=== PATIENT | female | born 1960 | race Caucasian/White ===

== ENCOUNTER 2023-08-15 17:35 | Emergency (ER) | payer MEDICARE, SELFPAY ==
[2023-08-15 17:45] VITALS: BP 126/87
[2023-08-15 18:02] LABS: % Basophils 0.4 % (0-2); % Eosinophils 2.7 % (0-6); % Immature Granulocytes 0.2 % (0-0.5); % Lymphocytes 18.5 % (20.5-51.1); % Monocytes 4.8 % (1.7-9.3); % Neutrophils 73.4 % (42.2-75.2); Absolute Eosinophils 0.2 10^3/uL (0-0.7); Absolute Lymphocytes 1.7 10^3/uL (1.2-3.4); Absolute Monocytes 0.4 10^3/uL (0.1-0.6); Absolute Neutrophils 6.6 10^3/uL (1.4-6.5); Hematocrit 39.8 % (37.0-47.0); Hemoglobin 14.3 g/dL (12.0-16.0); Mean Corp Hgb Conc. 35.9 g/dL (33.0-37.0); Mean Corpuscular Hgb 32.6 pg (27.0-31.0); Mean Corpuscular Volume 90.9 fL (81.0-99.0); Mean Platelet Volume 9.5 fL (7.4-10.4); Nucleated Red Blood Cells % 0 %; Platelet Count 223 10^3/uL (130-400); Red Blood Cell Count 4.38 10^6/uL (4.20-5.40); Red Cell Dist. Width 12.3 % (11.5-14.5)
[2023-08-15 18:25] LABS: ALT (SGPT) 24 U/L (0-35); AST (SGOT) 25 U/L (14-36); Albumin 4.5 g/dl (3.5-5.0); Alkaline Phosphatase 115 U/L (38-126); Blood Urea Nitrogen 22 mg/dl (7-17); Calcium 10.9 mg/dl (8.4-10.2); Carbon Dioxide 23 mmol/L (22-30); Chloride 102 mmol/L (98-107); Glucose 201 mg/dl (70-99); Potassium 4.3 mmol/L (3.5-5.1); Sodium 136 mmol/L (135-145); Total Bilirubin 0.6 mg/dl (0.2-1.3); Total Protein 7.2 g/dl (6.3-8.2); eGFR > 60.00
--- NOTE | 2023-08-15 22:31 | ED.GENMED ---
History of Present Illness
<Abiodun Arias DO - Last Filed: 08/16/23 03:12>
General
Chief Complaint: Anxiety
Source: patient
Time Seen by Provider: 08/15/23 22:29
Nursing documentation reviewed up to this point in time: agreed with
Travel History
Have you had any contact with someone who has COVID-19?: No
Do you have any symptoms of coronavirus? Fever > 100 degrees, chills, cough, shortness of breath, sore throat, loss of taste or smell, muscle aches, or headache?: No
History of Present Illness
History of Present Illness:
Mason 63-year-old female presents with medication reaction. Patient states that she was at and is having a medication reaction due to her psych meds. Patient
<JEOVANNY Gordon - Last Filed: 08/16/23 06:51>
History of Present Illness
History of Present Illness:
Mason 63-year-old female presents via ambulance due to medication reaction. Patient states that she was at and is having a medication reaction due to her psych meds. Patient was admitted for manic psychosis episode and was
started on Risperidone 2mg and discharged with 1mg dose. However, she admits the last time she took Risperidone, she had extrapyramidal symptoms including muscle stiffness, restlessness, and increased anxiety. She reports similar symptoms today.
She states she feels like 'something is going to happen' and must pace back and forth in the room. She states she will not take her daily dose of Risperidone 1mg today. She denies any heart palpitations, shortness of breath, chest pain, headaches,
nausea, vomiting, diarrhea. She denies hallucinations or delusions. She denies any suicidal or homicidal ideations. She has an appointment with her psychiatrist on 08/21/23.
Past History
<Abiodun Arias DO - Last Filed: 08/16/23 03:12>
Past History
ED Past Medical History: Psychiatric (Bipolar)
ED Past Surgical History: Other (Adenoma removed from parathyroid gland 2014)
Patient has exhibited threatening behavior?: No
Social History
Tobacco: Non-smoker
Alcohol: None
Drug: None
Personal:
Living: long-term
Review of Systems
<Abiodun Arias DO - Last Filed: 08/16/23 03:12>
Review of Systems
Allergies reviewed?: Yes
Other source history: family
All Other Systems: ROS reviewed and negative except as documented in HPI and ROS
Constitutional: Denies fever
Psychiatric: Reports anxiety; Denies suicidal
<JEOVANNY Gordon - Last Filed: 08/16/23 06:51>
Review of Systems
EENT: Reports no symptoms
Respiratory: Reports no symptoms
Cardiac: Reports no symptoms
ABD/GI: Reports no symptoms
: Reports no symptoms
Musculoskeletal: Reports muscle stiffness
Skin: Reports no symptoms
Neurological: Reports no symptoms
Endocrine: Reports no symptoms
Hematologic/Lymphatic: Reports no symptoms
Psychiatric: Reports anxiety (Feels like 'something is going to happen')
Phy Exam
<JEOVANNY Gordon - Last Filed: 08/16/23 06:51>
General Physical Exam
General Presentation: well appearing and no apparent distress
General Skin: warm and dry
General Habitus: normal
General Mental: anxious
General Hydration: appears well hydrated
ENT Exam
ENT Exam: EOMI, pharynx normal, neck supple and normocephalic
Eye Exam
Eye Exam: PERRL, cornea clear and conjunctiva normal
Cardiovascular Exam
Cardiovascular Exam: regular rate/rhythm, no edema, no murmur and normal peripheral pulses
Pulmonary Exam
Pulmonary Exam: lungs clear, no respiratory distress, no rales, no crackles, no rhonchi, no stridor, no wheezing and no cough
Gastrointestinal Exam
Gastrointestinal Exam: normal bowel sounds, non tender, soft, no organomegaly, no pulsatile mass and non distended
Neurological Exam
Neurological Exam: alert, oriented x3, no motor deficits and speech normal
Musculoskeletal Exam
Musculoskeletal Exam: full ROM and no edema
Skin Exam
Skin Exam: normal color, warm/dry, no rash and no petechia
Psychiatric Exam
Psychiatric Exam: normal mood/affect
Course
<Abiodun Arias, DO - Last Filed: 08/16/23 03:12>
Orders/Labs/Results
Orders:
Orders
08/15/23 17:54
Complete Blood Count/With Diff Urgent
Comprehensive Metabolic Panel Urgent
08/15/23 22:31
Electrocardiogram (*1) Urgent
Reason for Study: QTc Monitoring
EKG- Treatment ONCE
08/16/23 00:00
0.9% Sodium Chloride 1000 ml [Nss] 1,000 ml IV BOLUS
08/16/23 01:53
Crisis Consult Urgent
Reason for Consult: Anxiety
08/16/23 03:04
Benztropine [Cogentin] 1 mg PO NOW STA
08/16/23 Breakfast
Regular
At Your Request: Full Participation
Does patient need a safe tray?: Yes
08/16/23 06:17
Consult Notification Routine
Specialty to Notify: Psychiatry
PSYCHIATRY CONSULT Urgent
Consulting Provider: Shahriar Rodríguez
Was physician already notified: No
Reason for consult: med adjustment
08/16/23 06:19
Drug Screen, Urine [Urine Drug Abuse Screen] Urgent
Abnormal Lab Results
08/15/23 08/15/23
17:54 22:31
MCH 32.6 H pg
(27.0-31.0)
Absolute Neuts (auto) 6.6 H 10^3/uL
(1.4-6.5)
Lymphocytes % 18.5 L %
(20.5-51.1)
BUN 22 H mg/dl
(7-17)
Glucose 201 H mg/dl
(70-99)
Calcium 10.9 H mg/dl
(8.4-10.2)
POC Glucose 121 H mg/dl
(70-99)
08/15/23 17:54
08/15/23 17:54
Vital Signs
Initial and Last Documented VS:
Initial Vital Signs
Temp Pulse Resp BP Pulse Ox
98.1 F 102 18 126/87 98
08/15/23 17:45 08/15/23 17:45 08/15/23 17:45 08/15/23 17:45 08/15/23 17:45
Last Documented Vital Signs
Temp Pulse Resp BP Pulse Ox
97.7 F 70 16 137/90 98
08/16/23 06:21 08/16/23 06:21 08/16/23 06:21 08/16/23 06:21 08/16/23 06:21
<JEOVANNY Gordon - Last Filed: 08/16/23 06:51>
Orders/Labs/Results
Orders:
Orders
08/15/23 17:54
Complete Blood Count/With Diff Urgent
Comprehensive Metabolic Panel Urgent
08/15/23 22:31
Electrocardiogram (*1) Urgent
Reason for Study: QTc Monitoring
EKG- Treatment ONCE
08/16/23 00:00
0.9% Sodium Chloride 1000 ml [Nss] 1,000 ml IV BOLUS
08/16/23 01:53
Crisis Consult Urgent
Reason for Consult: Anxiety
08/16/23 03:04
Benztropine [Cogentin] 1 mg PO NOW STA
08/16/23 Breakfast
Regular
At Your Request: Full Participation
Does patient need a safe tray?: Yes
08/16/23 06:17
Consult Notification Routine
Specialty to Notify: Psychiatry
PSYCHIATRY CONSULT Urgent
Consulting Provider: Shahriar Rodríguez
Was physician already notified: No
Reason for consult: med adjustment
08/16/23 06:19
Drug Screen, Urine [Urine Drug Abuse Screen] Urgent
Abnormal Lab Results
08/15/23 08/15/23
17:54 22:31
MCH 32.6 H pg
(27.0-31.0)
Absolute Neuts (auto) 6.6 H 10^3/uL
(1.4-6.5)
Lymphocytes % 18.5 L %
(20.5-51.1)
BUN 22 H mg/dl
(7-17)
Glucose 201 H mg/dl
(70-99)
Calcium 10.9 H mg/dl
(8.4-10.2)
POC Glucose 121 H mg/dl
(70-99)
08/15/23 17:54
08/15/23 17:54
Vital Signs
Initial and Last Documented VS:
Initial Vital Signs
Temp Pulse Resp BP Pulse Ox
98.1 F 102 18 126/87 98
08/15/23 17:45 08/15/23 17:45 08/15/23 17:45 08/15/23 17:45 08/15/23 17:45
Last Documented Vital Signs
Temp Pulse Resp BP Pulse Ox
97.7 F 70 16 137/90 98
08/16/23 06:21 08/16/23 06:21 08/16/23 06:21 08/16/23 06:21 08/16/23 06:21
<JEOVANNY Gordon - Last Filed: 08/16/23 06:51>
MDM/Problems Addressed
Differential Diagnosis Includes:
Medication reaction, anxiety, manic psychosis episode, depression, CVA
Medication reaction and anxiety considered due to prior history of similar reaction to Risperidone. Manic psychosis episode considered, however she denies any hallucinations or delusions. CVA considered but no stroke like symptoms and normal
neurological exam. I suspect this is a reaction to Risperidone and will plan to discontinue and start patients typical bipolar medication.
<JEOVANNY Gordon - Last Filed: 08/16/23 06:51>
*Critical Care Note
Total Time (30-74mins, 75-104mins- exclusive of procedures): Not Applicable
ED Attending Note
<Abiodun Arias DO - Last Filed: 08/16/23 03:12>
ED Attending Note
Patient seen and examined by attending physician: Yes
I performed the substantive portion of visit, reviewed & personally made and approve the management plan that is documented in note by myself or CORI.: Yes
ED Attending Note:
63-year-old female presents via ambulance due to medication reaction. Was just discharged from after not taking some of her bipolar meds. She was switched to Remeron and now feels anxious. She had muscle stiffness
restlessness and increased anxiety. Patient refuses to take her risperidone. She is scheduled for an appointment with her psychiatrist on August 20. Patient was seen in conjunction with the PA student. I have reviewed and agree with the history and
treatment plan presented. On my independent physical exam, patient is awake, alert, and oriented x3. She is anxious pacing about the room.
-
Portions of this chart may have been created with voice recognition software.� Occasional wrong word or��sound alike� substitutions may have occurred due to the inherent limitations of voice recognition software.
Discharge Plan
Departure
Patient Disposition: Psych Facility
Date of Disposition: 08/16/23
Time of Disposition: 03:10
Patient Status:: 201
Condition: Fair
Discharge Problem:
Psychotic break, Bipolar 1 disorder, manic, mild
Prescriptions:
No Action
multivitamin Tablet
1 tab PO DAILY
atorvastatin 40 mg Tablet
40 mg PO HS
cholecalciferol (vitamin D3) 25 mcg (1,000 unit) Tablet
1,000 unit PO DAILY
levothyroxine 50 mcg tablet
50 mcg PO DAILY AT 0700
metformin 500 mg Tablet
500 mg PO BID@0800,1700 Qty: 1 0RF
carvedilol 6.25 mg tablet
6.25 mg PO BID
risperidone 4 mg tablet
4 mg PO HS
minoxidil 2.5 mg tablet
1.25 mg PO QPM
mirtazapine 30 mg tablet
30 mg PO HS
Xarelto 20 mg tablet
20 mg PO DAILY
Referrals:
Jose Alfredo Moreno DO [Family Provider] -
Interventions
Interventions:
*Risk Screen - Suicide Last Done: 08/15/23 17:45
*General Assessment Last Done: 08/15/23 17:45
*Neglect/Abuse Screening Last Done: 08/15/23 17:45
ED- Fall Risk Assessment Last Done: 08/16/23 00:00
*ED COVID-19 Vaccine History Last Done: 08/15/23 17:45
ED-Psychological Assessment Last Done: 08/15/23 23:30
Discharge Date and Time
Print Language: SPANISH
[2023-08-15 22:32] LABS: Glucose - Point of Care 121 mg/dl (70-99)
[2023-08-15 23:29] VITALS: BMI 28.0
[2023-08-15 23:30] VITALS: BP 142/85
[2023-08-16] MEDS: NSS 1000 IV (01:19)
[2023-08-16] MEDS: COGENTIN 1 MG PO (03:11)
[2023-08-16 06:21] VITALS: BP 137/90
[2023-08-16 10:11] LABS: Amphetamines Negative (Negative); Barbiturates Negative (Negative)
[2023-08-16 10:12] LABS: Benzodiazepines Negative (Negative); Buprenorphine Negative (Negative); Cocaine Negative (Negative); Marijuana Negative (Negative); Methadone Negative (Negative); Methamphetamines Negative (Negative); Opiates Negative (Negative); Phencyclidine Negative (Negative); Tricyclic Antidepressants Negative (Negative)
[2023-08-16 12:10] VITALS: BP 121/84
== END 2023-08-16 12:13 ==
LOC: EMR 17:35
PROVIDERS: Emergency Medicine; EMERGENCY PHYSICIAN Student in an Organized Health Care Education/Training Program; FAMILY PHYSICIAN Family Medicine
DX: F31.89 Other bipolar disorder (principal); F23 Brief psychotic disorder
CPT/HCPCS: 99285; 96360; 80053; 80306; 82962; 85025; 93005

== ENCOUNTER → 2024-09-09 15:58 | Outpatient (REF) | payer OTHER, SELFPAY | LOC: RAD 15:58 | PROVIDERS: ATTENDING PHYSICIAN Internal Medicine Hematology & Oncology | DX: I26.99 Other pulmonary embolism without acute cor pulmonale (principal) | CPT/HCPCS: 71275; Q9967 ==

== ENCOUNTER 2024-10-07 20:04 | Emergency (ER) | payer OTHER, SELFPAY ==
[2024-10-07 20:07] VITALS: BP 171/104
--- NOTE | 2024-10-07 23:22 | ED.GENMED ---
History of Present Illness
General
Chief Complaint: Crisis Evaluation
Source: patient and previous hospital records
Exam Limitations: clinical condition
Time Seen by Provider: 10/07/24 22:44
Nursing documentation reviewed up to this point in time: agreed with except (Upon review of medication bottles that are accompanying the patient. It appears Seroquel dose was decreased from 400 mg to 300 mg beginning September 10)
History of Present Illness
History of Present Illness:
This is a 64-year-old woman who resides at home with her son. She has history of hypertension, hyperlipidemia, dri-ytpheld-frpugjphu diabetes as well as longstanding history of anxiety, bipolar disorder with previous episodes of courtney requiring
inpatient psychiatric treatment. She follows regularly with a psychiatrist and apparently Seroquel dose was recently decreased from 400 to 300 mg beginning September 10.
She has been brought to the ED by her son with concern for inability to take care of herself, disorganized thoughts.
There has been no report of fall nor injury.
No prior history of suicide attempts nor history of alcohol nor drug use. No history of overmedication nor medication noncompliance.
Son is not present during evaluation and call to his cell phone goes to [employer].
Past History
Past History
ED Past Medical History: HTN, Hypercholesterolemia, NIDDM, Hypothyroidism, Psychiatric (Bipolar) and Other (History of PE 2022 treated with Xarelto for 1 year. Has since been discontinued and follows with hematology, Dr. Martinez. At this point
no indication to resume and no recurrent episodes.)
ED Past Surgical History: Other (Adenoma removed from parathyroid gland 2013)
Patient has exhibited threatening behavior?: No
Social History
Tobacco: Non-smoker
Alcohol: None
Drug: None
Personal:
Living: with family (Resides with her son)
Employment: Not employed
Family History
Family History: Other (Noncontributory)
Phy Exam
Physical Exam
Physical Exam:
GENERAL: 64-year-old woman appears her stated age, awake and alert, appears mildly disheveled in nature but oriented x 3. Mildly anxious, mildly restless, intermittent tangential and disorganized thought processes but cooperative and answering
simple questions appropriately.
EYE: pupils equal and reactive. anicteric
NECK: Supple, nontender, no meningismus, no significant adenopathy.
ENT: oral mucosa is moist. No rhinorrhea.
CARDIAC: Regular rate and rhythm. no murmur.
LUNGS: Clear breath sounds bilaterally, no acute respiratory distress, no wheezes/rales/rhonchi
ABDOMEN: Soft, nondistended, without focal tenderness, . normoactive BS.
NEUROLOGICAL: Alert and oriented x3, no focal neuro deficits. Gait is zambrano and steady. Intermittently restless, intermittent tongue smacking consistent with tardive dyskinesia.
SKIN: Warm and dry, normal color, skin intact. No rash.
MUSCULOSKELETAL: No C/C/E. peripheral pulses are full and equal b/l. No palpable tenderness.
PSYCH: Mildly anxious, mildly restless, intermittent tongue smacking. Tangential and disorganized thought processes. Adamantly denies suicidal thoughts or plan. She is agreeable to inpatient psychiatric treatment.
Course
Orders/Labs/Results
Orders:
Orders
10/07/24 20:19
Crisis Consult Urgent
Reason for Consult: Pt is manic
10/07/24 23:18
Urine Drug Abuse Screen Urgent
Date Specimen was Collected: 10/08/24
Time Specimen was Collected: 00:45
10/07/24 23:20
Vital Signs- Treatment ONCE
Frequency: Once
Benztropine [Cogentin] 1 mg PO NOW STA
10/07/24 23:32
Alcohol Urgent
Complete Blood Count/With Diff Urgent
Comprehensive Metabolic Panel Urgent
Abnormal Lab Results
10/07/24
23:32
MCH 32.2 H pg
(27.0-31.0)
Chloride 110 H mmol/L
(98-107)
Glucose 122 H mg/dl
(70-99)
AST 50 H U/L
(14-36)
ALT 49 H U/L
(0-35)
10/07/24 23:32
10/07/24 23:32
Vital Signs
Initial and Last Documented VS:
Initial Vital Signs
Temp Pulse Resp BP Pulse Ox
98.7 F 114 28 171/104 96
10/07/24 20:07 10/07/24 20:07 10/07/24 20:07 10/07/24 20:07 10/07/24 20:07
Last Documented Vital Signs
Temp Pulse Resp BP Pulse Ox
97.5 F 95 17 154/85 99
10/07/24 23:42 10/07/24 23:42 10/07/24 23:42 10/07/24 23:42 10/07/24 23:42
MDM/Problems Addressed
Differential Diagnosis Includes:
Concern for exacerbation of bipolar disorder, courtney, less likely electrolyte abnormality, exacerbation of diabetes.
Patient is moderately agitated, restless, lipsmacking�tardive dyskinesia. Unclear if this is a chronic condition versus newer onset. Patient appears to have similar presentation during ED visit August 2023. And was given a dose of Cogentin. Will
trial a dose of Cogentin now.
She has rambling thought processes but for the most part speech is understandable. Occasional brief nonsensical speech is noted.
She denies injury or falls. Denies pain and is currently hungry, requesting something to eat.
She was brought to the ED by her son who has since left the ED. I did attempt to call the cell phone, no answer.
Patient is agreeable to inpatient psychiatric treatment and has been evaluated by [facility]. Bed search in process.
Will check routine labs as well as EtOH and UDS. No prior history of alcohol no drug use.
Recent TSH 10/02/2024 within normal limits at 2.05. No indication to repeat.
Chronic conditions affecting care: DM, HTN and Psychiatric illness
Acute Exacerbation and/or Progression of Chronic Illness: Psychiatric illness
*Pulse Oximetry
SaO2: 96
Oxygen Mode of Delivery: Room air
Patient hypoxic: no
*Critical Care Note
Total Time (30-74mins, 75-104mins- exclusive of procedures): Not Applicable
Update Note
Update Note:
Patient has been accepted to [facility].
She remains cooperative.
Has consumed a box lunch.
Labs are unremarkable. Mildly elevated LFTs, similar to previous.
UDS and EtOH are negative as expected.
ED Attending Note
-
Portions of this chart may have been created with voice recognition software.� Occasional wrong word or��sound alike� substitutions may have occurred due to the inherent limitations of voice recognition software.
Discharge Plan
Departure
Patient Disposition: Psych Facility
Date of Disposition: 10/07/24
Time of Disposition: 23:26
Discharge Problem:
Bipolar disorder with psychotic features
Prescriptions:
No Action
multivitamin Tablet
1 tab PO DAILY
atorvastatin 40 mg Tablet
40 mg PO HS
cholecalciferol (vitamin D3) 25 mcg (1,000 unit) Tablet
1,000 unit PO DAILY
levothyroxine 50 mcg tablet
50 mcg PO DAILY AT 0700
metformin 500 mg Tablet
500 mg PO BID@0800,1700 Qty: 1 0RF
carvedilol 6.25 mg tablet
6.25 mg PO BID
risperidone 4 mg tablet
4 mg PO HS
minoxidil 2.5 mg tablet
1.25 mg PO QPM
mirtazapine 30 mg tablet
30 mg PO HS
Xarelto 20 mg tablet
20 mg PO DAILY
Referrals:
Jose Alfredo Moreno DO [Family Provider, Family Practice]
Interventions
Interventions:
*Risk Screen - Suicide Last Done: 10/07/24 20:12
*General Assessment Last Done: 10/07/24 23:47
*Neglect/Abuse Screening Last Done: 10/07/24 20:12
*ED- Fall Risk Assessment Last Done: 10/07/24 23:47
*ED COVID-19 Vaccine History Last Done: 10/07/24 23:47
ED-Psychological Assessment Last Done: 10/07/24 21:45
Discharge Date and Time
Print Language: FILIPINO
[2024-10-07] MEDS: COGENTIN 1 MG PO (23:36)
[2024-10-07 23:42] VITALS: BP 154/85
[2024-10-07 23:42] LABS: % Basophils 0.4 % (0-2); % Eosinophils 2.2 % (0-6); % Immature Granulocytes 0.2 % (0-0.5); % Lymphocytes 23.1 % (20.5-51.1); % Monocytes 7.1 % (1.7-9.3); Absolute Eosinophils 0.2 10^3/uL (0-0.7); Absolute Lymphocytes 2.1 10^3/uL (1.2-3.4); Absolute Monocytes 0.6 10^3/uL (0.1-0.6); Absolute Neutrophils 6.1 10^3/uL (1.4-6.5); Hematocrit 38.5 % (37.0-47.0); Hemoglobin 13.7 g/dL (12.0-16.0); Mean Corp Hgb Conc. 35.6 g/dL (33.0-37.0); Mean Corpuscular Hgb 32.2 pg (27.0-31.0); Mean Corpuscular Volume 90.6 fL (81.0-99.0); Mean Platelet Volume 9.1 fL (7.4-10.4); Nucleated Red Blood Cells % 0 %; Platelet Count 190 10^3/uL (130-400); Red Blood Cell Count 4.25 10^6/uL (4.20-5.40); Red Cell Dist. Width 12.1 % (11.5-14.5)
[2024-10-08 00:03] LABS: ALT (SGPT) 49 U/L (0-35); AST (SGOT) 50 U/L (14-36); Albumin 4.2 g/dl (3.5-5.0); Alkaline Phosphatase 104 U/L (38-126); Blood Urea Nitrogen 14 mg/dl (7-17); Calcium 10.2 mg/dl (8.4-10.2); Carbon Dioxide 24 mmol/L (22-30); Chloride 110 mmol/L (98-107); Glucose 122 mg/dl (70-99); Sodium 139 mmol/L (135-145); Total Bilirubin 0.7 mg/dl (0.2-1.3); Total Protein 7.2 g/dl (6.3-8.2); eGFR > 60.00
[2024-10-08 00:04] LABS: Alcohol None Detected
--- NOTE | 2024-10-08 00:35 | EDRN ---
pt was brought back to ED room 34 with a plastic bag full of pill bottles. supposedly patient's son came w/ patient and brought her medications, however he was not present when coming back to treatment room. the medications in the bag are as
followed:
Quetiapine 400mg #31 pills - filled 08/19/24 (1 tab every night at bedtime)
Hydroxyzine 50mg #60 pills - filled 11/18/23 *2 different manufacturers of pills present (1 tab twice daily as needed for anxiety)
Atorvastatin 40mg #7 pills - filled 07/10/24 (1 tab daily at bedtime)
Quetiapine 300mg #2 pills - filled 09/10/24 (1 tab daily at bedtime)
Minoxidil 2.5 mg #19 whole pills, #52 half pills - filled 09/23/24 (1/2 tab daily)
Hydroxyzine 50mg #58 pills - filled 09/23/24 (1 tab twice daily as needed for anxiety)
Levothyroxine 0.05mg #38 pills - filled 08/03/24 (1 tab daily)
Hydroxyzine 50mg #49 pills - filled 08/19/24 (1 tab twice daily as needed for anxiety)
Metformin 500mg #187 pills - filled 09/22/24 (1 tab twice daily with meals)
[2024-10-08 01:11] LABS: Amphetamines Negative (Negative); Barbiturates Negative (Negative); Benzodiazepines Negative (Negative); Buprenorphine Negative (Negative); Cocaine Negative (Negative); Marijuana Negative (Negative); Methadone Negative (Negative); Methamphetamines Negative (Negative); Opiates Negative (Negative); Phencyclidine Negative (Negative); Tricyclic Antidepressants Negative (Negative)
[2024-10-08 03:40] VITALS: BP 145/84
[2024-10-08 07:00] VITALS: BP 146/80
== END 2024-10-08 10:22 ==
LOC: EMR 20:04
PROVIDERS: EMERGENCY PHYSICIAN Emergency Medicine; FAMILY PHYSICIAN Family Medicine
DX: F31.2 Bipolar disorder, current episode manic severe with psychotic features (principal); I10 Essential (primary) hypertension; E78.00 Pure hypercholesterolemia, unspecified; E11.9 Type 2 diabetes mellitus without complications; E03.9 Hypothyroidism, unspecified; Z86.711 Personal history of pulmonary embolism
CPT/HCPCS: 99285; 80053; 80306; 82077; 85025

== ENCOUNTER 2025-02-19 19:38 | Emergency (ER) | payer OTHER, SELFPAY ==
[2025-02-19 19:42] VITALS: BP 146/103
[2025-02-19 20:50] LABS: Hematocrit 46.6 % (37.0-47.0); Hemoglobin 15.7 g/dL (12.0-16.0); Mean Corp Hgb Conc. 33.7 g/dL (33.0-37.0); Mean Corpuscular Volume 93.4 fL (81.0-99.0); Nucleated Red Blood Cells % 0 %; Platelet Count 197 10^3/uL (130-400); Red Cell Dist. Width 12.7 % (11.5-14.5)
[2025-02-19 21:05] LABS: ALT (SGPT) 52 U/L (0-35); AST (SGOT) 63 U/L (14-36); Acetaminophen < 10 ug/ml (10-30); Albumin 5.0 g/dl (3.5-5.0); Alkaline Phosphatase 117 U/L (38-126); Blood Urea Nitrogen 16 mg/dl (7-17); Calcium 10.5 mg/dl (8.4-10.2); Carbon Dioxide 21 mmol/L (22-30); Chloride 101 mmol/L (98-107); Glucose 110 mg/dl (70-99); Potassium 4.1 mmol/L (3.5-5.1); Salicylate < 1.0 mg/dl (2.0-20.0); Sodium 133 mmol/L (135-145); Total Protein 8.6 g/dl (6.3-8.2); eGFR > 60.00
[2025-02-19 22:33] LABS: Urine Character Slightly Cloudy (Clear)
[2025-02-19 22:56] LABS: Urine Red Blood Cell 0-2 /HPF (0-2); Urine Squamous Cell >30 /LPF (Few); Urine White Cell 21-25 /HPF (0-5)
--- NOTE | 2025-02-19 23:10 | ED.GENMED ---
History of Present Illness
<Kianna Martin MD, Resident - Last Filed: 02/20/25 06:52>
General
Chief Complaint: Crisis Evaluation
Source: patient
Time Seen by Provider: 02/19/25 22:22
History of Present Illness
History of Present Illness:
64-year-old female with past medical history of bipolar disorder, anxiety, type 2 diabetes, hypertension, hypothyroidism presents to the ER for psychiatric evaluation. Her son dropped her off but she is not sure why. She denies any thoughts of
harming herself or others. She states that she has been taking her medication as prescribed and has not missed any doses recently. She states she has not had any recent changes to her psychiatric medications. She states she has been sleeping
regularly and does not feel like she has any increased energy. She does not notice any difference in her speech however noted on presentation to be incredibly tangential. She is unable to provide more detail than the above without changing the
topic to something else. She states she enjoyed being at [facility] in the past and would like to go back. She denies any chest pain, shortness of breath, nausea, vomiting, diarrhea, fevers, chills, burning with urination, increased urinary
frequency or urgency.
Past History
<Kianna Martin MD, Resident - Last Filed: 02/20/25 06:52>
Past History
ED Past Medical History: HTN, Hypercholesterolemia, NIDDM, Hypothyroidism, Psychiatric (Bipolar, anxiety), Other (History of PE 2022 treated with Xarelto for 1 year. Has since been discontinued and follows with hematology, Dr. Martinez. At this
point no indication to resume and no recurrent episodes.) and Other (RBBB)
ED Past Surgical History: Other (Adenoma removed from parathyroid gland 2013)
Patient has exhibited threatening behavior?: No
Social History
Tobacco: Non-smoker
Alcohol: None
Drug: None
Personal:
Living: with family (Resides with her son)
Employment: Not employed
Family History
Family History: Other (Noncontributory)
Review of Systems
<Kianna Martin MD, Resident - Last Filed: 02/20/25 06:52>
Review of Systems
Allergies reviewed?: Yes
All Other Systems: ROS reviewed and negative except as documented in HPI and ROS
Phy Exam
<Kianna Martin MD, Resident - Last Filed: 02/20/25 06:52>
Physical Exam
Physical Exam:
General: Nontoxic
Head: Atraumatic
ENT: noted to be smacking her lips and periodically sticking out her tongue.
Cardiac: regular S1, S2, no murmurs rubs or gallops
Respiratory: Clear breath sounds bilaterally
Abdomen: Soft, nontender, no suprapubic tenderness, nondistended, normal bowel sounds
Extremities: No peripheral edema
Neurological: Cranial nerves II through XII intact, NIH 0, AAOx3
Psych: Speech tangental but non-pressured, calm, but unable to keep contiuous stream of thought.
Course
<Kianna Martin MD, Resident - Last Filed: 02/20/25 06:52>
Orders/Labs/Results
Orders:
Orders
02/19/25 20:43
Acetaminophen Urgent
Alcohol Urgent
Complete Blood Count/With Diff Urgent
Comprehensive Metabolic Panel Urgent
Salicylate Urgent
TSH Reflex To Free T4 Urgent
Comment: ADD ON
02/19/25 20:47
Crisis Consult Urgent
Reason for Consult: pt request; h/o bipolar
02/19/25 22:14
Urinalysis Reflex To Culture Urgent
Date Specimen was Collected: 02/19/25
Time Specimen was Collected: 22:12
Urine Drug Abuse Screen Urgent
Date Specimen was Collected: 02/19/25
Time Specimen was Collected: 22:12
Urine Microscopic Reflex Cult Urgent
Urine Culture Urgent
EDUARDA Source: U
Specimen Description:
Date Specimen was Collected: 02/19/25
Time Specimen was Collected: 22:12
02/19/25 22:55
Add On- LAB Urgent
Tests Added?: TSH with reflex to T4
02/19/25 23:09
PSYCHIATRY CONSULT Urgent
Consulting Provider: Fazal Hernandez
Was physician already notified: Yes
Reason for consult: bipolar disorder with courtney
02/20/25 01:43
Quetiapine Fumarate [Seroquel] 400 mg PO NOW STA
Abnormal Lab Results
02/19/25 02/19/25
20:43 22:14
WBC 11.3 H 10^3/uL
(4.8-10.8)
MCH 31.5 H pg
(27.0-31.0)
Absolute Neuts (auto) 8.9 H 10^3/uL
(1.4-6.5)
Neutrophils % 78.2 H %
(42.2-75.2)
Lymphocytes % 14.1 L %
(20.5-51.1)
Sodium 133 L mmol/L
(135-145)
Carbon Dioxide 21 L mmol/L
(22-30)
Glucose 110 H mg/dl
(70-99)
Calcium 10.5 H mg/dl
(8.4-10.2)
AST 63 H U/L
(14-36)
ALT 52 H U/L
(0-35)
Total Protein 8.6 H g/dl
(6.3-8.2)
Urine Ketones 3+ A
(Negative)
Ur Occult Blood Reflex 1+ A
(Negative)
Leukocyte Esterase Rfl 2+ A
(Negative)
Urine WBC (Reflex) 21-25 A /HPF
(0-5)
Urine Bacteria (Reflex) Moderate A
(Negative)
Urine Glucose 4+ A
(Negative)
Urine Albumin (Reflex) 1+ A
(Neg - Trace)
Salicylates < 1.0 L mg/dl
(2.0-20.0)
Acetaminophen < 10 L ug/ml
(10-30)
Ur Tricyclics Screen Positive H
(Negative)
02/19/25 20:43
02/19/25 20:43
Vital Signs
Initial and Last Documented VS:
Initial Vital Signs
Temp Pulse Resp BP Pulse Ox
98.2 F 105 18 146/103 98
02/19/25 19:42 02/19/25 19:42 02/19/25 19:42 02/19/25 19:42 02/19/25 19:42
Last Documented Vital Signs
Temp Pulse Resp BP Pulse Ox
98.2 F 88 14 137/90 98
02/19/25 19:42 02/20/25 01:28 02/20/25 01:28 02/20/25 01:28 02/20/25 01:28
<Shabana Carnes, DO - Last Filed: 02/20/25 06:51>
Orders/Labs/Results
Orders:
Orders
02/19/25 20:43
Acetaminophen Urgent
Alcohol Urgent
Complete Blood Count/With Diff Urgent
Comprehensive Metabolic Panel Urgent
Salicylate Urgent
TSH Reflex To Free T4 Urgent
Comment: ADD ON
02/19/25 20:47
Crisis Consult Urgent
Reason for Consult: pt request; h/o bipolar
02/19/25 22:14
Urinalysis Reflex To Culture Urgent
Date Specimen was Collected: 02/19/25
Time Specimen was Collected: 22:12
Urine Drug Abuse Screen Urgent
Date Specimen was Collected: 02/19/25
Time Specimen was Collected: 22:12
Urine Microscopic Reflex Cult Urgent
Urine Culture Urgent
EDUARDA Source: U
Specimen Description:
Date Specimen was Collected: 02/19/25
Time Specimen was Collected: 22:12
02/19/25 22:55
Add On- LAB Urgent
Tests Added?: TSH with reflex to T4
02/19/25 23:09
PSYCHIATRY CONSULT Urgent
Consulting Provider: Fazal Hernandez
Was physician already notified: Yes
Reason for consult: bipolar disorder with courtney
02/20/25 01:43
Quetiapine Fumarate [Seroquel] 400 mg PO NOW STA
Abnormal Lab Results
02/19/25 02/19/25
20:43 22:14
WBC 11.3 H 10^3/uL
(4.8-10.8)
MCH 31.5 H pg
(27.0-31.0)
Absolute Neuts (auto) 8.9 H 10^3/uL
(1.4-6.5)
Neutrophils % 78.2 H %
(42.2-75.2)
Lymphocytes % 14.1 L %
(20.5-51.1)
Sodium 133 L mmol/L
(135-145)
Carbon Dioxide 21 L mmol/L
(22-30)
Glucose 110 H mg/dl
(70-99)
Calcium 10.5 H mg/dl
(8.4-10.2)
AST 63 H U/L
(14-36)
ALT 52 H U/L
(0-35)
Total Protein 8.6 H g/dl
(6.3-8.2)
Urine Ketones 3+ A
(Negative)
Ur Occult Blood Reflex 1+ A
(Negative)
Leukocyte Esterase Rfl 2+ A
(Negative)
Urine WBC (Reflex) 21-25 A /HPF
(0-5)
Urine Bacteria (Reflex) Moderate A
(Negative)
Urine Glucose 4+ A
(Negative)
Urine Albumin (Reflex) 1+ A
(Neg - Trace)
Salicylates < 1.0 L mg/dl
(2.0-20.0)
Acetaminophen < 10 L ug/ml
(10-30)
Ur Tricyclics Screen Positive H
(Negative)
02/19/25 20:43
02/19/25 20:43
Vital Signs
Initial and Last Documented VS:
Initial Vital Signs
Temp Pulse Resp BP Pulse Ox
98.2 F 105 18 146/103 98
02/19/25 19:42 02/19/25 19:42 02/19/25 19:42 02/19/25 19:42 02/19/25 19:42
Last Documented Vital Signs
Temp Pulse Resp BP Pulse Ox
98.2 F 88 14 137/90 98
02/19/25 19:42 02/20/25 01:28 02/20/25 01:28 02/20/25 01:28 02/20/25 01:28
<Kianna Martin MD, Resident - Last Filed: 02/20/25 06:52>
MDM/Problems Addressed
Differential Diagnosis Includes:
Manic episode, depression, anxiety,
MDM/Problems Addressed:
CBC noted a WBC of 9.3. Sodium 133 and calcium elevated at 10.5. Will check a TSH. UA reveals possible UTI however 30+ squamous epithelial cells. She denies any UTI symptoms. Unlikely that the above lab abnormalities are contributing to current
mental status. Her last TSH was done on 10/01/24 which was 2.05.
Crisis consulted and seen the patient. She does not meet criteria for inpatient psych. Attempted to call the son 4+ times and unable to get a hold of him. Crisis was able to get around a hold of the daughter who lives in [place] and she stated
she has been acting off recently but is unable to do anything to help because she lives so far away. Will consult psychiatry to see the patient in the morning for med adjustment.
TSH is 1.06 within normal limits making thyroid function unlikely to be contributing to current presentation.
Chronic conditions affecting care: Psychiatric illness
<Kianna Martin MD, Resident - Last Filed: 02/20/25 06:52>
*Pulse Oximetry
SaO2: 98
Oxygen Mode of Delivery: Room air
Patient hypoxic: no
*Critical Care Note
Total Time (30-74mins, 75-104mins- exclusive of procedures): Not Applicable
Data Reviewed
Review of Other/Old Records Reveals: Labs (11/08/22 TSH 1.43) and Radiology Studies (Brain MRI 11/07/22 no acute intracranial abnormalities. )
Source: patient
ED Attending Note
<Kianna Martin MD, Resident - Last Filed: 02/20/25 06:52>
-
Portions of this chart may have been created with voice recognition software.� Occasional wrong word or��sound alike� substitutions may have occurred due to the inherent limitations of voice recognition software.
<Shabana Carnes DO - Last Filed: 02/20/25 06:51>
ED Attending Note
Patient seen and examined by attending physician: Yes
I performed a history and physical exam of patient and discussed management with resident, I reviewed resident's note and agree with documented findings and plan of care.: Yes
ED Attending Note:
This is a 64-year-old woman who resides at home with her son. She has a history of hypertension, hyperlipidemia, [id number] diabetes as well as longstanding history of anxiety, bipolar disorder with previous episodes of courtney requiring
inpatient psychiatric treatment. Most recently September of this year. She follows regularly with a psychiatrist, maintained on Seroquel, currently at 400 mg at bedtime.
She is brought to the ED this evening by her son with concern for scattered thoughts, anxiety. Patient requesting psychiatric evaluation for medication adjustment.
Very similar presentation in September of this year.
Her son has since returned home, he is not answering his phone.
Patient is awake and alert, answering questions appropriately. Mildly tangential and scattered thought processes but easily able to be redirected. She adamantly denies suicidal thoughts. No homicidal thoughts.
There has been no report of falls or recent illnesses.
She is awake and alert. Intermittent lipsmacking is noted.
Laboratory studies essentially unremarkable. Minimally elevated white blood cell count. She remains afebrile. No acute infectious process identified on exam nor in history.
Chemistries reveal minimally elevated LFTs, similar and unchanged from previous. Random glucose 110.
History of hypothyroidism, will check TSH.
Patient has been evaluated by Monica dos santos and at this point no definitive indication for acute inpatient psychiatric treatment.
Plan is to continue to observe in the ED with psychiatrist evaluation in the a.m.
Patient agreeable with this plan.
Discharge Plan
Departure
Discharge Problem:
Bipolar disorder with acute courtney
Prescriptions:
No Action
multivitamin Tablet
1 tab PO DAILY
atorvastatin 40 mg Tablet
40 mg PO HS
cholecalciferol (vitamin D3) 25 mcg (1,000 unit) Tablet
1,000 unit PO DAILY
levothyroxine 50 mcg tablet
50 mcg PO DAILY AT 0700
metformin 500 mg Tablet
500 mg PO BID@0800,1700 Qty: 1 0RF
minoxidil 2.5 mg tablet
1.25 mg PO QPM
propranolol 10 mg Tablet
10 mg PO BID
magnesium 200 mg Tablet
400 mg PO DAILY
apple cider vinegar 500 mg Tablet
500 mg PO DIRECTED
quetiapine [Seroquel] 400 mg Tablet
400 mg PO HS
melatonin 10 mg Tablet
10 mg PO HS PRN (Reason: sleep)
Jardiance 10 mg Tablet
10 mg PO DAILY
cranberry
130 mg PO DIRECTED
Referrals:
Jose Alfredo Moreno DO [Family Provider, Family Practice]
Interventions
Interventions:
*Risk Screen - Suicide Last Done: 02/19/25 19:42
*General Assessment Last Done: 02/20/25 00:27
*Neglect/Abuse Screening Last Done: 02/19/25 19:42
*ED- Fall Risk Assessment Last Done: 02/19/25 22:27
*ED COVID-19 Vaccine History Last Done: 02/19/25 22:27
*ED Influenza Vaccine History Last Done: 02/19/25 22:27
ED-Psychological Assessment Last Done: 02/20/25 01:28
Discharge Date and Time
Print Language: BULGARIAN
[2025-02-20 00:30] VITALS: BMI 30.4
[2025-02-20 01:28] VITALS: BP 137/90
[2025-02-20] MEDS: SEROQUEL 400 MG PO (02:14)
[2025-02-20 09:36] LABS: Glucose - Point of Care 116 mg/dl (70-99)
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
[2025-02-20] MEDS: SEROQUEL 100 MG PO (13:11)
[2025-02-20 17:05] VITALS: BP 132/74
== END 2025-02-20 18:42 ==
LOC: EMR 19:38
PROVIDERS: Emergency Medicine; CONSULT PHYSICIAN Psychiatry & Neurology Psychiatry; EMERGENCY PHYSICIAN Emergency Medicine; FAMILY PHYSICIAN Family Medicine
DX: F31.9 Bipolar disorder, unspecified (principal); E11.9 Type 2 diabetes mellitus without complications; E03.9 Hypothyroidism, unspecified; E78.00 Pure hypercholesterolemia, unspecified; I10 Essential (primary) hypertension; F19.10 Other psychoactive substance abuse, uncomplicated; Z86.711 Personal history of pulmonary embolism
CPT/HCPCS: 99285; 80053; 80143; 80179; 80306; 81003; 81015; 82077; 82962; 84443; 85025; 87077; 87086; 87186